=== PATIENT | female | born 2000 | race Caucasian/White ===

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

== ENCOUNTER 2018-01-07 19:10 | Emergency (ER) | payer SELFPAY ==
[2018-01-07 19:22] VITALS: BP 132/89
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
--- NOTE | 2018-01-07 20:56 | RAD ---
CT of the cervical spine was obtained in the axial plane. Sagittal and coronal reconstructed images were obtained. Skull base demonstrates no fracture. Mastoid air cells are well aerated. The vertebral bodies appear normal in height and alignment. No fracture is noted. Disc spaces all well-preserved. The intervertebral foramen appear patent. IMPRESSION: No fracture of the cervical spine is identified.
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
--- NOTE | 2018-01-07 21:27 | RAD ---
Indication: Back pain. 2 views of the lumbar spine demonstrate vertebral bodies to be normal in height. Disc spaces all well-preserved. Pedicles appear intact. IMPRESSION: No fracture of the lumbar spine is noted.
== END 2018-01-07 21:42 | disposition home or self-care (01) ==
LOC: UCEAST 19:10
DX: M62.838 Other muscle spasm (principal); M62.830 Muscle spasm of back; R51 Headache; J45.909 Unspecified asthma, uncomplicated; Z88.1 Allergy status to other antibiotic agents; Z88.5 Allergy status to narcotic agent
CPT/HCPCS: 70450; 72100; 72125; 72128; 99213; G0463

== ENCOUNTER 2018-03-14 11:33 | Emergency (ER) | payer OTHER ==
[2018-03-14] MEDS ORDERED: HYDROmorphone INJ* 2 MG/ML CARPUJECT SYRINGE IV SLOW PU ONE (12:09)
--- NOTE | 2018-03-14 12:54 | RAD ---
Indication: Right hip dislocation. 2 views of the right hip demonstrates superior and lateral dislocation of the right femoral head. Pelvic ring is intact. IMPRESSION: Superior and lateral dislocation of the right femoral head.
[2018-03-14] MEDS ORDERED: fentaNYL* 50 MCG/ML 2 ML VIAL (100 MCG VIAL) IV SLOW PU ONE (13:53)
[2018-03-14] MEDS ORDERED: Midazolam* 1 MG/ML 10 ML VIAL (10 MG) IV ONE (13:53)
[2018-03-14] MEDS ORDERED: Flumazenil* 0.1 MG/ML 5 ML MDV ONE (14:00)
[2018-03-14] MEDS ORDERED: Naloxone* 0.4 MG/ML 10 ML VIAL ONE (14:00)
--- NOTE | 2018-03-14 14:44 | RAD ---
Indication: Right hip dislocation. Single view of the right hip demonstrates reduction of the previously seen dislocation of the right femoral neck. IMPRESSION: Reduction of previously identified dislocation of the right femoral head.
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
--- NOTE | 2018-03-14 15:39 | RAD ---
INDICATION: Right hip dislocation status post external reduction. COMPARISON: Comparison is made with a prior MRI study of the hips from October 17, 2017 and prior x-ray studies of the right hip from March 14, 2008. TECHNIQUE: Contiguous axial sections were obtained of the pelvis and hips. Images were reconstructed in the sagittal and coronal planes. FINDINGS: The bones are in normal alignment. No acute fracture is seen. There is a surgical pin in the left femoral head and neck. The patient also appears to be status post bilateral CAM bumpectomies. There is a lucent lesion in the right acetabulum measuring 0.6 cm in size most consistent with a subchondral cyst. There is a small amount of air within the soft tissues anterior to the right hip. There is soft tissue swelling present adjacent to the anterior and superior aspect of the hip joint. The visualized portion of the small bowel colon appear nondistended. The uterus is retroverted and normal in size. There is a T-shaped IUD present. There is a small amount of free intraperitoneal fluid present in the dependent pelvis. There appears to be a 3.0 x 2.3 cm right ovarian cyst. IMPRESSION: 1. NO EVIDENCE FOR ACUTE FRACTURE. 2. POSTSURGICAL CHANGES IN BOTH HIPS. 3. SMALL AMOUNT OF FREE INTRAPERITONEAL FLUID AND 3 CM RIGHT OVARIAN CYST.
[2018-03-14 16:50] VITALS: BP 121/85
--- NOTE | 2018-03-14 18:30 | ED ---
Brian Reyes Angela, scribed for Domingo Arellano MD on 03/14/18 at 1819 . Progress - Progress Note Progress Note: I assisted ROGER Walter with reducing the right hip dislocation. Please see procedure note. Care of pt will be continued by ROGER Walter. Right hip and pelvis XR, as read by radiologist IMPRESSION: Superior and lateral dislocation of the right femoral head. Right hip XR s/p reduction, as read by radiologist IMPRESSION: Reduction of previously identified dislocation of the right femoral head. Course/Dx - Course Course Of Treatment: PROCEDURE NOTE. PROCEDURAL SEDATION. RISKS AND BENEFITS EXPLAINED. CONSENT FORM SIGNED. AIRWAY EQUIPMENT AND RESPIRATORY AT BEDSIDE, CAPNOGRAPH MONITORING. VERSED AND FENTANYL ADMINISTERED. ADEQUATE SEDATION, SUCCESSFUL REDUCTION, SATISFACTORY RECOVERY FROM SEDATION WITH STEVEN IN CONSTANT ATTENDANCE. SEE SEDATION FORM - Diagnoses Provider Diagnoses: Hip dislocation, right Discharge - Sign-Out/Discharge Documenting (check all that apply): Discharge/Admit/Transfer - Discharge - Discharge Plan Condition: Good Disposition: HOME Prescriptions: oxyCODONE/Acetamin 5/325 MG* [Percocet 5/325 TAB*] 1 tab PO Q6H PRN #9 tab MDD 4 tablets PRN Reason: Pain Patient Education Materials: Hip Dislocation (ED) Referrals: Milady Durham MD [Primary Care Provider] - Additional Instructions: Follow up with your orthopedic surgeon Use crutches for walking Pain medication as directed Return to ER if symptoms change or worsen - Billing Disposition and Condition Condition: GOOD Disposition: HOME Procedures - Joint Reduction Joint Reduction Site: hip (R) Conscious Sedation: Yes - obtained informed consent, pt was given versed and fentanyl Reduction Attempts: 1 - pt tolerated the procedure well Pre-Procedure NV Exam: Yes Post Joint Reduction Film: joint reduced The documentation as recorded by the Brian rodarte Angela accurately reflects the service I personally performed and the decisions made by Adan vance Jerry, MD.
== END 2018-03-14 16:48 | disposition home or self-care (01) ==
LOC: ED 11:33
DX: S73.004A Unspecified dislocation of right hip, initial encounter (principal); X50.0XXA Overexertion from strenuous movement or load, initial encounter; Y92.9 Unspecified place or not applicable
CPT/HCPCS: 27265; 96374; 96375; 99282; J1170; J2250; J2310; J3010

== ENCOUNTER 2019-09-17 06:20 | Day surgery (SDC) | payer OTHER ==
[~2019-09-17 06:20] MED LIST changes: -Atracurium* 10 MG/ML 10 ML VIAL ONE; -Buffered Lidocaine 0.9% SYRIN* 5 ML/SYR SYRINGE INTRADERM ONE; -Buffered Lidocaine 0.9% SYRIN* 5 ML/SYR SYRINGE ONE; +Buffered Lidocaine 1% SYRIN* 1 ML/SYRINGE INTRADERM ONE; -Clindamycin 900 MG IVPREMIX(* 0 MG/0 ML SDV IV ONE; -Famotidine IV* 10 MG/ML 2 ML (20 mg) IV ONE; -Famotidine IV* 10 MG/ML 2 ML (20 mg) ONE; -KETAMINE HCL* 50 MG/ML 10 ML VIAL ONE; +Lactated Ringers 1000 ML Bag* 1,000 ML IV SCH; -Midazolam* 1 MG/ML 5 ML VIAL (5 MG) ONE; -Morphine INJ* 2 MG/ML 1 ML SYRINGE IV PRN; -PROCHLORPERAZINE INJ 5 MG/ML 2 ML VIAL IV PRN; -Scopolamine 1.5 mg* PATCH ONE; -Scopolamine 1.5 mg* PATCH TRANSDERM SCH; -Scopolomine PATCH Remove* 1 NOTE MISC PATCH OFF SCH; +Sodium Citrate/Citric Acid* 15 ML UDC PO ONE; -fentaNYL* 50 MCG/ML 2 ML VIAL (100 MCG VIAL) IV PRN; -fentaNYL* 50 MCG/ML 2 ML VIAL (100 MCG VIAL) ONE
[2019-09-17] MEDS ORDERED: Sodium Citrate/Citric Acid* 15 ML UDC ONE (06:25)
[2019-09-17] MEDS ORDERED: ceFAZolin 2 GM in NS PREMIX(*) 2 GM/100 ML BAG IVPB ONE (06:42)
[2019-09-17] MEDS ORDERED: Acetaminophen IV 1GM/100ML * 1,000 MG/100 ML VIAL IVPB ONE (07:18)
[2019-09-17] MEDS ORDERED: Naloxone* 0.4 MG/ML 1 ML VIAL IV PRN (07:18)
[2019-09-17] MEDS ORDERED: DiMENhydriNATE IV* 50 MG/ML VIAL IV PUSH PRN (07:18)
[2019-09-17] MEDS ORDERED: fentaNYL* 50 MCG/ML 2 ML VIAL (100 MCG VIAL) IV PRN (07:18)
[2019-09-17] MEDS ORDERED: Propofol* 10 MG/ML 20 ML BTL ONE (07:23)
[2019-09-17] MEDS ORDERED: fentaNYL* 50 MCG/ML 2 ML VIAL (100 MCG VIAL) ONE (07:23)
[2019-09-17] MEDS ORDERED: Midazolam* 1 MG/ML 2 ML VIAL (2 MG) ONE (07:23)
[2019-09-17] MEDS ORDERED: Lidocaine 2% PF * 5 ML VIAL ONE (07:24)
[2019-09-17] MEDS ORDERED: Bupivacaine 0.25% SDV* 30 ML ONE (07:34)
[2019-09-17] MEDS ORDERED: Dexamethasone IV* 4 MG/ML 1 ML (4 MG) ONE (08:39)
[2019-09-17 09:33] VITALS: BP 112/62
--- NOTE | 2019-09-17 19:06 | OP ---
DATE OF OPERATION: 09/17/19 - [facility] DATE OF : 89 SURGEON: Angelito Whiting MD CORK TILE FLOOR LAYER: ROGER Fowler. An sales service assistant was needed for the procedure to aid in positioning of the arm and retraction. ANESTHESIOLOGIST: Dr. Tyson. ANESTHESIA: General. PRE-OP DIAGNOSES: 1. Right thumb radial sesamoiditis. 2. Right thumb partial radial collateral ligament tear. POST-OP DIAGNOSES: 1. Right thumb radial sesamoiditis. 2. Right thumb partial radial collateral ligament tear. OPERATIVE PROCEDURE: 1. Right thumb radial sesamoid bone excision. 2. Right thumb radial collateral ligament and volar plate repair. INDICATIONS: Karen has the aforementioned condition. We talked about risks and benefits. She wanted to proceed. ESTIMATED BLOOD LOSS: 2 mL. COMPLICATIONS: None. FINDINGS: See above and below. DESCRIPTION OF PROCEDURE: Karen was seen in the preoperative holding area. The correct side, site, and procedure were identified. We came back to the operating room. The arm was prepped and draped in the usual fashion. A time- out was performed. The arm was exsanguinated with the Esmarch and the tourniquet was inflated to 225 mmHg. I raised a medial V-shaped incision and raised a radially based flap to expose the anterior and lateral aspect of the MCP joint. The digital nerve was identified and retracted gently out of the way. I used to a [place] blade to ellipse out the radial sesamoid bone. This came out in one piece. This was handed off as a specimen. I then examined the insertion and origin of the radial collateral ligament and volar plate. As noted on the MRI, there was some peel off of the insertion of the radial collateral ligament. I went ahead and took some 4-0 Ethibond suture and sew this back to the volar plate. This took at least 3 [id number] 4-0 Ethibond sutures. Once I completed the radial collateral ligament repair and the volar plate repair, I went ahead and irrigated out the wound. The skin was closed with 4-0 nylon suture. Wound was dressed. A short arm thumb spica splint at the IP joint was applied to the thumb with 30 degrees flexion at the MCP joint. Tourniquet was deflated and she was taken to the recovery room in stable condition. [id number]/[facility] #: [id number] MTDOli
== END 2019-09-17 09:45 | disposition home or self-care (01) ==
LOC: OREAST 06:20
PROVIDERS: ATTEND Orthopaedic Surgery Hand Surgery
DX: S63.641A Sprain of metacarpophalangeal joint of right thumb, initial encounter (principal); M25.841 Other specified joint disorders, right hand; X58.XXXA Exposure to other specified factors, initial encounter; Y92.9 Unspecified place or not applicable; J45.909 Unspecified asthma, uncomplicated
CPT/HCPCS: 81025; 88304; 88311; A9270-GY; J0690; J1100; J2250; J2704; J3010; J3490